=== PATIENT | male | born 1935 | race Caucasian/White ===

== ENCOUNTER 2017-09-30 12:20 | Inpatient (IN) | payer MEDICARE, BC ==
[~2017-09-30] VITALS: Ht 180.3 cm; Wt 78.2 kg
[2017-09-30] MEDS ORDERED: ZOCOR10 MG PO (13:04)
[2017-09-30] MEDS ORDERED: COZAAR100 MG PO (13:04)
[2017-09-30] MEDS ORDERED: MAG-OX 400 MG400 MG PO (13:05)
[2017-09-30] MEDS ORDERED: CENTRUM SILVER1 TA1 PO (13:06)
[2017-09-30] MEDS ORDERED: BAYER CHEWABLE81 MG PO (13:06)
[2017-09-30 13:07] VITALS: BP 144/77; Ht 180.3 cm; Wt 78.2 kg
[2017-09-30 14:26] LABS: ALBUMIN 3.7 g/dL (3.4-5.0); ANION GAP 14.7 mmol/L (8-16); BILIRUBIN - TOTAL 0.3 mg/dL (0.2-1.3); CALCIUM 9.1 mg/dL (8.5-10.1); CARBON DIOXIDE 25.8 mmol/L (21.0-32.0); CREATININE - SERUM 1.1 mg/dL (0.6-1.3); POTASSIUM - SERUM 4.5 mmol/L (3.5-5.1); PROTEIN - SERUM 6.3 g/dL (6.4-8.2)
[2017-09-30 14:37] LABS: THYROID STIMULATING HORMONE 2.01 uIU/mL (0.36-3.74)
[2017-09-30 14:45] LABS: BASOPHILS 0.7 % (0-2); EOSINOPHILS 1.1 % (0-7); IMMATURE GRANULOCYTES 0.2 % (0-5); LYMPHOCYTES 9.7 % (15-50); MCH 22.3 pg (26.0-34.0); MCHC 29.6 g/dL (31.0-37.0); MCV 75.5 fL (80.0-100.0); MONOCYTES 10.1 % (2-11); NEUTROPHILS 78.2 % (40-80); PLATELET COUNT 309 10x3/uL (130-400); RBC 3.18 10x6/uL (4.00-5.40); RDW 14.5 % (11.5-14.5); WBC 5.7 10x3/uL (4.8-10.8)
[2017-09-30 14:55] LABS: HEMOGLOBIN 7.1 g/dL (12-16)
[2017-09-30 18:10] LABS: CKMB 1.1 U/L (0.0-3.6); CREATINE KINASE 124 UL (21-215); TROPONIN-I 0.021 ng/mL (0.000-0.060)
[2017-09-30 19:55] VITALS: BP 152/89
[2017-09-30 20:10] VITALS: BP 159/81
--- NOTE | 2017-09-30 20:50 | NUR ---
2ND UNIT PRBCS COMPLETED AT THIS TIME. NO REACTION NOTED. VS STABLE PT DENIES ANY OTHER NEEDS. CALL LIGHT IN REACH. WILL CONTINUE WITH PLAN OF CARE.
[2017-09-30 21:50] VITALS: BP 164/94
[2017-09-30 22:24] LABS: CKMB 1.3 U/L (0.0-3.6); CREATINE KINASE 138 UL (21-215); TROPONIN-I 0.019 ng/mL (0.000-0.060)
[2017-09-30 23:58] VITALS: BP 152/89
--- NOTE | 2017-10-01 02:00 | NUR ---
CONSENT FORMS FOR EGD WITH TIVA WITH DR. MARCELINO SIGNED AT THIS TIME.
[2017-10-01 02:33] VITALS: BP 144/57
[2017-10-01 05:15] LABS: BASOPHILS 0.8 % (0-2); EOSINOPHILS 2.1 % (0-7); HEMATOCRIT 28.3 % (36.0-48.0); IMMATURE GRANULOCYTES 0.2 % (0-5); MCH 23.9 pg (26.0-34.0); MCHC 31.1 g/dL (31.0-37.0); MCV 76.9 fL (80.0-100.0); MONOCYTES 10.3 % (2-11); NEUTROPHILS 73.6 % (40-80); PLATELET COUNT 281 10x3/uL (130-400); RBC 3.68 10x6/uL (4.00-5.40); RDW 14.9 % (11.5-14.5); WBC 5.2 10x3/uL (4.8-10.8)
[2017-10-01 05:22] LABS: HEMOGLOBIN 8.8 g/dL (12-16)
[2017-10-01 05:51] LABS: CKMB 1.2 U/L (0.0-3.6); CREATINE KINASE 127 UL (21-215)
[2017-10-01 05:57] LABS: ALBUMIN 3.5 g/dL (3.4-5.0); ANION GAP 15.7 mmol/L (8-16); BILIRUBIN - TOTAL 0.8 mg/dL (0.2-1.3); CALCIUM 9.2 mg/dL (8.5-10.1); CARBON DIOXIDE 23.8 mmol/L (21.0-32.0); CREATININE - SERUM 1.2 mg/dL (0.6-1.3); POTASSIUM - SERUM 4.5 mmol/L (3.5-5.1)
[2017-10-01 06:08] LABS: TROPONIN-I < 0.017 ng/mL (0.000-0.060)
[2017-10-01 06:30] VITALS: BP 144/73
--- NOTE | 2017-10-01 07:20 | NUR ---
REPORT RECEIVED, ASSUMED CARE OF PT. RESTING, EASILY AROUSED. L FOREARM IV INFUSING FLUIDS ORDERED, DRSG C/D/I. NO NEEDS VOICED AT THIS TIME. BED IN LOWEST POSITION, SIDE RAILS UP X 2, CALL LIGHT WITHIN REACH.
--- NOTE | 2017-10-01 08:49 | NUR ---
Patient Name: ALYSSIA HUERTA Admission Status: Elective Accout number: [id number] Admission Date: 09-30-2017 : 1935 Admission Diagnosis: Attending: ABRAHAN WHITAKER Current LOS: 1 Anticipated DC Date: Planned Disposition: Home Primary Insurance: MEDICARE A & B Discharge Planning Comments: CM MET WITH PATIENT REGARDING D/C NEEDS AND PLANS. PATIENT STATED HE LIVES WITH HIS AND THEY HAVE NO STEPS OR STAIRS TO ENTER THEIR HOME. PATIENTS SON WILL DRIVE HIM HOME AT DISCHARGE. PATIENT STATED HE IS INDEPENDENT WITH HIS CARE AND HAS A CANE AT HOME IF NEEDED. PATIENTS PCP IS DR. BUSBY AND [facility] IS [facility]. PATIENT IS REFUSING HOME HEALTH AT THIS TIME. CM WILL CONTINUE TO FOLLOW PATIENT WITH D/C NEEDS AND PLANS. PCP DR. BUSBY [facility]- [phone] DAHLIA () [phone] Rehabilitation Coordinator: Taylor Victor Is the patient Alert and Oriented? Yes 0 * How many steps to enter\exit or inside your home? 0 0 * PCP DR. BUSBY 0 * Pharmacy [facility] 0 * Preadmission Environment Home with Family 0 * ADLs Independent 0 * Equipment Cane 0 * List name and contact numbers for known caregivers / representatives who currently or will assist patient after discharge: DAHLIA () [phone] 0 * Community resources currently utilized None 0 * Additional services required to return to the preadmission environment? Yes 0 * Can the patient safely return to the preadmission environment? Yes 0 * Has this patient been hospitalized within the prior 30 days at any hospital? No 0 Grand Total: 0
[2017-10-01 10:05] VITALS: BP 125/75
--- NOTE | 2017-10-01 10:35 | NUR ---
1 UNIT PRBC TRANSFUSION INITIATED, WILL MONITOR IN ROOM X 15 MINUTES THEN CONTINUE TO MONITOR.
--- NOTE | 2017-10-01 19:30 | NUR ---
PT UP IN ROOM, DENIES ANY NEEDS AT THIS TIME. CALL LIGHT IN REACH. WILL CONTINUE WITH PLAN OF CARE.
[2017-10-01 20:00] VITALS: BP 123/61
[2017-10-02] VITALS: BP 130/66
[2017-10-02 04:00] VITALS: BP 145/80
[2017-10-02 05:30] LABS: BASOPHILS 0.5 % (0-2); EOSINOPHILS 1.9 % (0-7); HEMATOCRIT 31.9 % (42.0-54.0); IMMATURE GRANULOCYTES 0.2 % (0-5); LYMPHOCYTES 14.2 % (15-50); MCH 24.5 pg (26.0-34.0); MCHC 31.3 g/dL (31.0-37.0); MCV 78.2 fL (80.0-100.0); MEAN PLATELET VOLUME 9.2 fL (7.4-10.4); MONOCYTES 10.7 % (2-11); NEUTROPHILS 72.5 % (40-80); PLATELET COUNT 271 10x3/uL (130-400); RBC 4.08 10x6/uL (4.20-6.10); RDW 15.6 % (11.5-14.5); WBC 5.7 10x3/uL (4.8-10.8)
[2017-10-02 05:57] LABS: ALBUMIN 3.5 g/dL (3.4-5.0); ANION GAP 15.6 mmol/L (8-16); BILIRUBIN - TOTAL 0.65 mg/dL (0.2-1.3); CALCIUM 9.2 mg/dL (8.5-10.1); CARBON DIOXIDE 22.5 mmol/L (21.0-32.0); CREATININE - SERUM 1.1 mg/dL (0.6-1.3); POTASSIUM - SERUM 4.1 mmol/L (3.5-5.1); PROTEIN - SERUM 6.7 g/dL (6.4-8.2)
[2017-10-02 08:23] VITALS: BP 117/87
--- NOTE | 2017-10-02 08:54 | NUR ---
PT AOX4 RESP EVEN AND NONLABORED PT DENIES NEEDS AT THIS TIME IV TO LEFT FOREARM PATENT AND INTACT AT THIS TIME SRX2 BED AT LOWEST SETTING CALL LIGHT WITHIN REACH WILL CONTINUE TO MONITOR
[2017-10-02 12:34] VITALS: BP 170/90
[2017-10-02 16:29] VITALS: BP 119/69
--- NOTE | 2017-10-02 19:00 | NUR ---
REPORT RECEIVED AND CARE OF PT ASSUMED. PT LYING IN SUPINE POSITION WITH EYES CLOSED AND UNLABORED BREATHING. NO IV AT THIS TIME...WILL RE-SITE. WILL MONITOR CLOSLEY FOR NEEDS. CALL LIGHT WITHIN REACH.
[2017-10-02 20:00] VITALS: BP 128/72
[2017-10-03] VITALS: BP 180/69
--- NOTE | 2017-10-03 02:00 | NUR ---
RE-SITED IV TO LEFT UPPER ARM USING 20 GUAGE CATHETER. IV FLUIDS RE-STARTED.
[2017-10-03 06:46] LABS: BASOPHILS 0.7 % (0-2); EOSINOPHILS 2.5 % (0-7); HEMATOCRIT 31.5 % (42.0-54.0); IMMATURE GRANULOCYTES 0.2 % (0-5); LYMPHOCYTES 16.5 % (15-50); MCH 24.9 pg (26.0-34.0); MCHC 31.7 g/dL (31.0-37.0); MCV 78.4 fL (80.0-100.0); MEAN PLATELET VOLUME 8.9 fL (7.4-10.4); MONOCYTES 11.3 % (2-11); NEUTROPHILS 68.8 % (40-80); PLATELET COUNT 261 10x3/uL (130-400); RBC 4.02 10x6/uL (4.20-6.10); RDW 16.1 % (11.5-14.5); WBC 5.5 10x3/uL (4.8-10.8)
[2017-10-03 07:07] LABS: ALBUMIN 3.4 g/dL (3.4-5.0); ANION GAP 13.3 mmol/L (8-16); BILIRUBIN - TOTAL 0.5 mg/dL (0.2-1.3); CALCIUM 9.3 mg/dL (8.5-10.1); CARBON DIOXIDE 24.3 mmol/L (21.0-32.0); CREATININE - SERUM 1.1 mg/dL (0.6-1.3); POTASSIUM - SERUM 4.6 mmol/L (3.5-5.1); PROTEIN - SERUM 6.3 g/dL (6.4-8.2)
[2017-10-03 08:40] VITALS: BP 153/95
--- NOTE | 2017-10-03 09:10 | NUR ---
PT AOX4 RESP EVEN AND NONLABORED PT DENIES NEEDS AT THIS TIME IV TO LEFT FOREARM PATENT AND INTACT SRX2 BED AT LOWEST SETTING CALL LIGHT WITHIN REACH WILL CONTINUE TO MONITOR
[2017-10-03] MEDS ORDERED: PROTONIX40 MG PO (11:12)
--- NOTE | 2017-10-03 14:45 | NUR ---
IV DISCONTINUED WITH CATHETER INTACT AT THIS TIME PT GIVEN DISCHARGE INSTRUCTIONS AT THIS TIME
--- NOTE | 2017-10-03 14:56 | NUR ---
PT TAKEN VIA WHEELCHAIR VIA PRIVATE VEHICLE AT THIS TIME
== END 2017-10-03 14:57 | disposition home or self-care (01) | DRG 378 ==
LOC: EDSEX 12:20 → D.MS 12:20
PROVIDERS: Family Medicine; Internal Medicine Gastroenterology; ADMIT Emergency Medicine
PROC: 0DB78ZX Excision of Stomach, Pylorus, Via Natural or Artificial Opening Endoscopic, Diagnostic (ICD-10-PCS; 2017-10-01)
PROC: 0DB98ZX Excision of Duodenum, Via Natural or Artificial Opening Endoscopic, Diagnostic (ICD-10-PCS; principal; 2017-10-01 16:15)
DX: K26.4 Chronic or unspecified duodenal ulcer with hemorrhage (principal); D62 Acute posthemorrhagic anemia; K25.4 Chronic or unspecified gastric ulcer with hemorrhage; R55 Syncope and collapse; I10 Essential (primary) hypertension; E78.2 Mixed hyperlipidemia; M25.551 Pain in right hip; K44.9 Diaphragmatic hernia without obstruction or gangrene; T39.315A Adverse effect of propionic acid derivatives, initial encounter

== ENCOUNTER 2018-07-06 23:39 | Emergency (ER) | payer MEDICARE, BC ==
[~2018-07-06] VITALS: Ht 180.3 cm; Wt 73.2 kg
[~2018-07-06 23:39] MED LIST: BAYER CHEWABLE81 MG PO; CENTRUM SILVER1 TA1 PO; COZAAR100 MG PO; MAG-OX 400 MG400 MG PO; PROTONIX40 MG PO; ZOCOR10 MG PO
[2018-07-06 23:45] VITALS: Ht 180.3 cm; Wt 73.2 kg
[2018-07-07] MEDS ORDERED: NEURONTIN 300300 MG PO (01:08)
[2018-07-07 02:41] VITALS: BP 160/83
== END 2018-07-07 01:58 | disposition home or self-care (01) ==
LOC: D.ER 23:39
DX: M54.2 Cervicalgia (principal)

== ENCOUNTER → 2018-07-20 06:37 | Outpatient (CLI) | payer MEDICARE, BC ==
[2018-07-06 23:45] VITALS: BMI 22.5
[~2018-07-20 06:37] MED LIST changes: +NEURONTIN 300300 MG PO
== END | disposition home or self-care (01) ==
LOC: D.MRI 06:37
DX: M54.12 Radiculopathy, cervical region (principal)

== ENCOUNTER → 2018-12-10 18:51 | Outpatient (CLI) | payer MEDICARE, BC ==
[2018-07-06 23:45] VITALS: BMI 22.5
[~2018-12-10 18:51] MED LIST changes: +ASPIRIN81 MG PO; +NIASPAN500 MG PO; +NORCO 10-325 TA1 TAB PO
== END | disposition home or self-care (01) ==
LOC: D.LABREF 18:51
DX: D72.829 Elevated white blood cell count, unspecified (principal)

== ENCOUNTER 2018-12-16 08:27 | Day surgery (SDC) | payer MEDICARE, BC ==
[~2018-12-16] VITALS: Ht 180.3 cm; Wt 73.5 kg
[2018-12-16 09:00] LABS: HEMATOCRIT 33.3 % (42.0-54.0); HEMOGLOBIN 10.9 g/dL (13.5-17.5); MCH 28.4 pg (26.0-34.0); MCHC 32.7 g/dL (31.0-37.0); MCV 86.7 fL (80.0-100.0); MEAN PLATELET VOLUME 9.2 fL (7.4-10.4); RBC 3.84 10x6/uL (4.20-6.10); RDW 12.1 % (11.5-14.5); WBC 5.3 10x3/uL (4.8-10.8)
[2018-12-16 11:07] VITALS: BP 166/84; Ht 180.3 cm; Wt 73.5 kg
--- NOTE | 2018-12-16 12:29 | NUR ---
PRE OPERATIVE BP 176/91
--- NOTE | 2018-12-16 12:35 | NUR ---
REC'D FROM RR. FAMILY AT BEDSIDE. DR ABAD IN AND SPEAKING WITH PT AND FAMILY. UP TO BATHROOM AND VOIDED A SMALL AMOUNT WITH CLOTS NOTED. COFFEE BROUGHT TO PT.
--- NOTE | 2018-12-16 13:23 | NUR ---
FL TRAY BROUGHT TO PT. RELATED HE URINATED A LITTLE BIT MORE. FAMILY AT BEDSIDE.
--- NOTE | 2018-12-16 13:35 | NUR ---
TOLERATED DIET. IV DC'D WITH CATHETER INTACT. CONTINUES TO BE ABLE AND VOID. BLOOD CLOTS NOTED IN URINE. RELATES WHEN HE HAD HIS HERNIA REPAIR HE HAD TO HAVE A VILLALBA BUT THAT WAS PROBABLY IN . EXPLAINED TO PATIENT LONG HE IS ABLE TO VOID HE IS BETTER OFF NOT HAVING A CATHETER BECAUSE ANYTIME SOMETHING IS INTRODUCED INTO THE BODY YOU ARE AT A HIGHER RISK OF GETTING AN INFECTION, VERBALIZED UNDERSTANDING.
--- NOTE | 2018-12-16 13:50 | OP ---
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 SHANTE; 50-gram prostate. PSA 2.24. PVR 35 mL. IPSS score of 21. Quality of life score of 6. FINDINGS: On cystoscopy, bilateral lateral lobe prostatic hyperplasia with no penile urethral strictures. Trabeculated bladder with single ureteral orifices bilaterally. No bladder tumors. PROCEDURE: Cystoscopy with UroLift times 5 implants, 3 of them on the left lateral lobe and 2 on the right lateral lobe. BLOOD LOSS: Minimal. CLINICAL HISTORY: This is an 83-year-old male who has had complaints of increased urinary frequency with nocturia greater than 3 for over 2 years. His PSA was 2.24 on 08/10/2018. He has not been on any medications for BPH. During the daytime, his voiding frequency is q. 2 h. There is no hesitancy. There have been times when the flow has been slow and he feels that he is emptying. He came originally from [place] and his urologist there performed prostate biopsies 3 times. All of them had been benign. The last prostate biopsy was 7 years ago. His family history is negative for BPH and prostate cancer. When we saw him in the office, his postvoid residual was 35 mL. I had him perform AUA symptom score in the office. I am not sure that he correctly understood the questionnaire as he gave an IPSS score of 10 and a quality of life score of 1. I had him repeat the questionnaire today with his son administering it to him. His repeat AUA symptom score is IPSS of 21 and quality of life score of 6. He comes today to have the UroLift procedure done. He is not allergic to any medications. He was given Ancef cold reduction roller to the OR. DESCRIPTION OF PROCEDURE: The patient was given IV sedation. He was then placed in the dorsal lithotomy position and prepped and draped. The UroLift scope was used. Findings are as outlined above. He has a very long obstructive prostatic urethra. I started with 2 implants at the level of the verumontanum. One implant was placed on each side in the anterolateral lobe. I then placed 2 implants in the proximal region just 1.5 cm to 2 cm distal to the bladder neck. They were again placed in the anterolateral lobe. This improved the anterior urethral channel except there was still a bulge from the left lateral lobe in the mid portion. We placed the fifth implant in the mid portion of the left lateral lobe, in the anterior region. This opened up a nice wide urethral channel throughout. The bladder was then emptied through the cystoscope and the patient was brought to the recovery room. TRANSINT:[id number] Voice Confirmation ID: [id number] DOCUMENT ID: [id number] OPERATIVE REPORT [id number] ALYSSIA HUERTA ROBERT S MD at 1350 CC: [id number] DICTATION DATE: 12/16/18 1220 KINDERGARTEN INSTRUCTIONAL ASSISTANT: 12/16/18 1340 [facility] [address] [place] [address]
--- NOTE | 2018-12-16 13:55 | NUR ---
WRITTEN AND VERBAL DC INST GIVEN TO PT. VERBALIZED UNDERSTANDING.
--- NOTE | 2018-12-16 14:05 | NUR ---
DC'D HOME WITH FAMILY VIA PRIVATE VEHICLE. TAKEN TO VEHICLE VIA WC. STABLE AT TIME OF DC.
== END 2018-12-16 14:05 | disposition home or self-care (01) ==
LOC: D.OPS 08:27 → D.PAN 12:00 → D.OPS 12:00
PROVIDERS: Anesthesiology
DX: N40.1 Benign prostatic hyperplasia with lower urinary tract symptoms (principal); N13.8 Other obstructive and reflux uropathy; R35.0 Frequency of micturition; R35.1 Nocturia; N32.89 Other specified disorders of bladder; Z01.812 Encounter for preprocedural laboratory examination

== ENCOUNTER 2019-02-07 11:06 | Outpatient (CLI) | payer MEDICARE, BC ==
[~2019-02-07] VITALS: Ht 180.3 cm; Wt 73.2 kg
[2019-02-07 13:15] VITALS: BP 175/98; Ht 180.3 cm; Wt 73.2 kg
--- NOTE | 2019-02-07 17:51 | NUR ---
1700 BLOOD HAS COMPLETED, LINE BEING FLUSHED WITH NS. 1730 LINE IS FLUSHED, DENIES PROBLEMS, IV DC'D WITH CATH INTACT. 1730 DC INSTS GIVEN VOICED UNDERSTANDING, RELEASED AMB. WITH . PT VOIDS.
== END 2019-02-07 17:30 | disposition home or self-care (01) ==
LOC: D.OPS 11:06
PROVIDERS: ATTEND Internal Medicine Hematology & Oncology
DX: D64.9 Anemia, unspecified (principal)

== ENCOUNTER → 2020-06-21 08:19 | Outpatient (CLI) | payer MEDICARE, BC ==
[2019-02-07 13:15] VITALS: BMI 22.5
== END | disposition home or self-care (01) ==
LOC: D.HCCECHO 08:19
PROVIDERS: ATTEND Internal Medicine Cardiovascular Disease
DX: I10 Essential (primary) hypertension (principal)